=== PATIENT | male | born 1955 | race Caucasian/White ===

== ENCOUNTER → 2019-03-14 | Outpatient (CLI) | payer BC ==
[~2019-03-14] MED LIST: AMLO10TA8 PO; HYDR25TA6 PO; LISI-167 PO; METF850T10 PO; PANT40TA5 PO
== END | disposition home or self-care (01) ==
LOC: STAR 09:27
PROVIDERS: ATTEND Orthopaedic Surgery
DX: Z01.818 Encounter for other preprocedural examination (principal); M17.12 Unilateral primary osteoarthritis, left knee
CPT/HCPCS: 87081; 93005

== ENCOUNTER 2019-03-21 06:20 | Observation (INO) | payer BC ==
[2019-03-14 10:38] VITALS: BP 133/79
[~2019-03-21] VITALS: Ht 177.8 cm; Wt 95.7 kg
[2019-03-21] MEDS ORDERED: SODIUM CHLORIDE 0.9% 50 ML ONE (06:26)
[2019-03-21] MEDS ORDERED: EPINEPHRINE 1 MG/ML, 1ML ONE (06:26)
[2019-03-21] MEDS ORDERED: TRANEXAMIC ACID 100 MG/ML, 10ML ONE (06:26)
[2019-03-21] MEDS ORDERED: ROPIvacaine/PF 0.5%, 20 ML ONE (06:26)
[2019-03-21] MEDS ORDERED: KETOROLAC 60 MG/2 ML ONE (06:26)
[2019-03-21] MEDS ORDERED: VANCOMYCIN 1,000 MG ONE (06:26)
[2019-03-21] MEDS ORDERED: OxyconTIN ER 10 MG TAB.ER PO ONE (07:30)
[2019-03-21] MEDS ORDERED: GABAPENTIN 300 MG CAPSULE PO ONE (07:30)
[2019-03-21] MEDS ORDERED: ACETAMINOPHEN 500 MG TABLET PO ONE (07:30)
[2019-03-21] MEDS ORDERED: TAMSULOSIN 0.4 MG CAP.ER.24H PO ONE (07:30)
[2019-03-21] MEDS: LACTATED RINGERS 1,000 ML IV SCH ×3 (07:47→17:40)
[2019-03-21] MEDS ORDERED: MIDAZOLAM 1 MG/ML, 2ML ONE (08:05)
[2019-03-21] MEDS ORDERED: FENTANYL PF 100 MCG/2ML ONE ×2 (08:05→11:16)
[2019-03-21] MEDS ORDERED: FENTANYL PF 250 MCG/5ML ONE (09:47)
[2019-03-21] MEDS ORDERED: METOPROLOL 1 MG/ML, 5ML ONE (09:53)
[2019-03-21] MEDS ORDERED: HYDROmorphone 2 MG/ML, 1ML IVPush PRN ×2 (10:00→12:00)
[2019-03-21] MEDS ORDERED: ONDANSETRON 2MG/ML, 2ML IV PRN (10:00)
[2019-03-21] MEDS ORDERED: OXYcodone 5 MG/5 ML ORAL.SOL UDC PO PRN (10:00)
[2019-03-21] MEDS ORDERED: MEPERIDINE/PF 25MG/0.5ML IVPush PRN (10:00)
[2019-03-21] MEDS ORDERED: PROMETHAZINE 25 MG/ML, 1ML IV PRN (10:00)
[2019-03-21] MEDS ORDERED: hydrALAzine 20 MG/ML, 1ML IV PRN (10:00)
[2019-03-21] MEDS ORDERED: ALBUTEROL/IPRATROPIUM 2.5MG/0.5MG, 3 ML NPPB PRN (10:00)
[2019-03-21] MEDS ORDERED: SCOPOLAMINE PATCH, 1.5MG PATCH.TD72 TD PRN (10:00)
[2019-03-21] MEDS ORDERED: MIDAZOLAM 1 MG/ML, 2ML IV PRN (10:00)
[2019-03-21] MEDS ORDERED: DIAZEPAM 5 MG/ML, 2ML IVPush PRN (10:00)
[2019-03-21] MEDS ORDERED: METOPROLOL 1 MG/ML, 5ML IV PRN (10:00)
[2019-03-21] MEDS ORDERED: BUPIVACAINE/PF 0.25% ONE (10:02)
[2019-03-21] MEDS ORDERED: DEXAMETHASONE 4 MG/ML, 1ML ONE (10:02)
[2019-03-21] MEDS ORDERED: LIDOCAINE-MPF 2% ,5ML ONE (10:02)
[2019-03-21] MEDS ORDERED: CEFAZOLIN 1,000 MG ONE (10:02)
[2019-03-21] MEDS ORDERED: PROPOFOL 10 MG/ML, 20ML ONE (10:02)
[2019-03-21] MEDS ORDERED: ONDANSETRON 2MG/ML, 2ML ONE (10:02)
[2019-03-21] MEDS ORDERED: HYDROmorphone 1 MG/ML, 1ML INJ IVPush PRN (11:00)
[2019-03-21] MEDS: INSULIN REGULAR 100 UNITS/ML, 3ML VIAL SQ-INSULIN SCH ×3 (11:00→20:31)
[2019-03-21] MEDS ORDERED: DIAZEPAM 5 MG TABLET PO PRN (11:00)
[2019-03-21] MEDS ORDERED: ONDANSETRON 4 MG TABLET PO PRN (11:00)
[2019-03-21] MEDS ORDERED: ACETAMINOPHEN 650 MG/20.3 ML UDC PO PRN (11:00)
[2019-03-21] MEDS ORDERED: TEMAZEPAM 15 MG CAPSULE PO PRN (11:00)
[2019-03-21] MEDS ORDERED: DIPHENHYDRAMINE 50 MG/ML, 1ML IVPush PRN (11:00)
[2019-03-21] MEDS ORDERED: MAGNESIUM HYDROXIDE 8%, 30ML UDC PO PRN (11:00)
[2019-03-21] MEDS ORDERED: PROMETHAZINE 25 MG/ML, 1ML IM PRN (11:00)
[2019-03-21] MEDS ORDERED: POLYETHYLENE GLYCOL 17 GM PACKET PO PRN (11:00)
[2019-03-21] MEDS ORDERED: DIPHENHYDRAMINE 25 MG CAPSULE PO PRN (11:00)
[2019-03-21] MEDS ORDERED: ACETAMINOPHEN 500 MG TABLET PO SCH (11:00)
[2019-03-21] MEDS ORDERED: ALUMINUM/MAG/SIMETHICONE 30 ML UDC PO PRN (11:00)
[2019-03-21] MEDS ORDERED: DEXAMETHASONE 4 MG/ML, 1ML IVPush SCH (11:00)
[2019-03-21] MEDS ORDERED: METOCLOPRAMIDE 5 MG/ML, 2ML IVPush PRN (11:00)
[2019-03-21] MEDS ORDERED: SENNA/DOCUSATE TABLET PO PRN (11:00)
[2019-03-21] MEDS ORDERED: ZOLPIDEM 5MG TABLET PO PRN (11:00)
[2019-03-21] MEDS ORDERED: KETOROLAC 30 MG/1 ML IV SCH (11:00)
[2019-03-21] MEDS ORDERED: PSYLLIUM PACKET PO PRN (11:00)
[2019-03-21] MEDS ORDERED: OXYcodone IR 5MG TABLET PO PRN ×2 (11:00)
[2019-03-21] MEDS ORDERED: ONDANSETRON 2MG/ML, 2ML IVPush PRN (11:00)
[2019-03-21] MEDS ORDERED: BISACODYL 10 MG SUPP PR PRN (11:00)
[2019-03-21] MEDS ORDERED: LORazepam 1MG TABLET PO PRN (11:00)
[2019-03-21] MEDS ORDERED: PROMETHAZINE 12.5 MG SUPP PR PRN (11:00)
[2019-03-21] MEDS ORDERED: METOCLOPRAMIDE 10MG TABLET PO PRN (11:00)
[2019-03-21] MEDS ORDERED: HYDROmorphone 2 MG/ML, 1ML ONE (11:16)
[2019-03-21] MEDS: FENTANYL PF 100 MCG/2ML IV PRN ×2 (11:25→11:46)
[2019-03-21] MEDS ORDERED: TRANEXAMIC ACID 1,000 MG in SODIUM CHLORIDE 0.9% 100 ML IVPB ONE (11:30)
[2019-03-21] MEDS: CALCIUM/VITAMIN D3 250-125 TABLET PO SCH ×2 (12:00→17:02)
[2019-03-21] MEDS ORDERED: CEFAZOLIN PMX 1GM/50ML 50 ML IVPB SCH (12:30)
[2019-03-21 13:51] VITALS: BP 109/69
[2019-03-21] MEDS: KETOROLAC 30 MG/1 ML IV SCH ×2 (15:00→23:54)
[2019-03-21] MEDS: FERROUS SULFATE 325 MG TABLET PO SCH (17:02)
[2019-03-21] MEDS: ACETAMINOPHEN 500 MG TABLET PO SCH ×2 (17:02→23:55)
[2019-03-21] MEDS: CEFAZOLIN PMX 1GM/50ML 50 ML IVPB SCH (17:41)
[2019-03-21 19:07] VITALS: BP 111/69
[2019-03-21] MEDS: DOCUSATE 100 MG CAPSULE PO SCH (20:32)
[2019-03-21] MEDS: metFORMIN 850 MG TABLET PO SCH (20:32)
[2019-03-21] MEDS: PANTOPROZOLE 40MG TABLET PO SCH (20:32)
[2019-03-21] MEDS: ASPIRIN 81 MG TABLET EC PO SCH (20:32)
[2019-03-22 00:31] VITALS: BP 111/71
[2019-03-22] MEDS: CEFAZOLIN PMX 1GM/50ML 50 ML IVPB SCH (01:30)
[2019-03-22 05:24] VITALS: BP 128/76
[2019-03-22] MEDS ORDERED: DEXAMETHASONE 4 MG/ML, 1ML IVPush ONE (06:00)
[2019-03-22] MEDS: ACETAMINOPHEN 500 MG TABLET PO SCH ×2 (06:35→10:14)
[2019-03-22] MEDS: INSULIN REGULAR 100 UNITS/ML, 3ML VIAL SQ-INSULIN SCH (06:36)
[2019-03-22] MEDS: LACTATED RINGERS 1,000 ML IV SCH ×2 (07:24)
[2019-03-22 07:56] VITALS: BP 116/66
[2019-03-22] MEDS: KETOROLAC 30 MG/1 ML IV SCH (08:05)
[2019-03-22] MEDS: CALCIUM/VITAMIN D3 250-125 TABLET PO SCH (08:07)
[2019-03-22] MEDS: DOCUSATE 100 MG CAPSULE PO SCH (08:07)
[2019-03-22] MEDS: metFORMIN 850 MG TABLET PO SCH (08:08)
[2019-03-22] MEDS: ASPIRIN 81 MG TABLET EC PO SCH (08:08)
[2019-03-22] MEDS: FERROUS SULFATE 325 MG TABLET PO SCH (08:08)
[2019-03-22] MEDS: PANTOPROZOLE 40MG TABLET PO SCH (08:09)
[2019-03-22] MEDS ORDERED: OXYC5TAB3 PO (08:52)
[2019-03-22] MEDS ORDERED: ASCORBIC ACID 500 MG TABLET PO SCH (09:00)
[2019-03-22] MEDS ORDERED: LISINOPRIL 10 MG TABLET PO SCH (09:00)
[2019-03-22] MEDS ORDERED: MULTIVITAMINS/MINERALS TABLET PO SCH (09:00)
[2019-03-22] MEDS ORDERED: HYDROCHLOROTHIAZIDE 25 MG TABLET PO SCH (09:00)
[2019-03-22] MEDS ORDERED: AMLODIPINE 10 MG TAB PO SCH (09:00)
[2019-03-22 10:11] VITALS: BP 108/63
== END 2019-03-22 10:35 | disposition home or self-care (01) ==
LOC: OUT 06:20 → ORIP 10:59 → 4NOR 12:16 → DCLOUNGE 03-22 10:28
PROVIDERS: ADMIT Orthopaedic Surgery; ATTEND Orthopaedic Surgery
DX: M17.12 Unilateral primary osteoarthritis, left knee (principal); I10 Essential (primary) hypertension; E11.9 Type 2 diabetes mellitus without complications; K21.9 Gastro-esophageal reflux disease without esophagitis; M21.162 Varus deformity, not elsewhere classified, left knee; Z79.899 Other long term (current) drug therapy
CPT/HCPCS: 27447; 36415; 73560; 82962; 85014; 85018; 96365; 96366; 96372; 96375; 96376; 97116; 97150; 97161; C1713; C1776; G0378; J0171; J0690; J1100; J1170; J1815; J1885; J2250; J2405; J2704; J2795; J3010; J3490; J7120; J3370